=== PATIENT | male | born 1955 | race Caucasian/White ===

== ENCOUNTER 2016-11-07 05:44 | Day surgery (SDC) | payer BC ==
--- NOTE | ~2016-11-07 | EGD ---
EGD REPORT [facility] [address] [place]. [place] [address] NAME: NORA MONTES : [birth year] STATUS : REG [facility] [place] [place] PAT#: [id number] AGE: 60 ADM/REG DATE : 11/07/16 MR#: [id number] REPORT SERV DATE: 11/07/16 DICTATED BY: LARRY ALICIA DATE: 11/07/16 REPORT STATUS : Draft [facility]ANSCRIBED BY: [facility] DATE: 11/07/16 Endoscopy Center Patient Name: Nora Montes Date of : 1955 Attending MD: LARRY ALICIA MD Procedure Date No Time: 11/07/2016 Procedure: Upper GI endoscopy Indications: Epigastric abdominal pain, Heartburn, Suspected esophageal reflux Referring MD: DEAN NGUYEN MD Medicines: as per anesthesia Complications: No immediate complications. Procedure: Pre-Anesthesia Assessment: - ASA Grade Assessment: II - A patient with mild systemic disease. After obtaining informed consent, the endoscope was passed under direct vision. Throughout the procedure, the patient's blood pressure, pulse, and oxygen saturations were monitored continuously. The GIF H190 [id number] was introduced through the mouth, and advanced to the third part of duodenum. The upper GI endoscopy was accomplished without difficulty. The patient tolerated the procedure well. Findings: There were esophageal mucosal changes suspicious for short-segment Salgado's esophagus present in the lower third of the esophagus. The maximum longitudinal extent of these mucosal changes was 2 cm in length. Mucosa was biopsied with a cold forceps for histology randomly at intervals of 1 cm in the lower third of the esophagus. One specimen bottle was sent to pathology. Localized mild inflammation characterized by erythema was found in the gastric antrum. Biopsies were taken with a cold forceps for histology. The cardia and gastric fundus were normal on retroflexion. The examined duodenum was normal. Impression: - Esophageal mucosal changes suspicious for short-segment Salgado's esophagus. Biopsied. - Gastritis. Biopsied. - Normal examined duodenum. Recommendation: - Await pathology results. - Follow an antireflux regimen. - Continue present medications. EGD REPORT [facility] [address] [facility] [place] [address] NAME: NORA MONTES : [birth year] STATUS : REG [facility]#: [id number] AGE: 60 ADM/REG DATE : 11/07/16 MR#: [id number] REPORT SERV DATE: 11/07/16 DICTATED BY: LARRY ALICIA. DATE: 11/07/16 REPORT STATUS : Draft TRANSCRIBED BY: [employer] DATE: 11/07/16 Procedure Code(s): --- Professional --- 71571, Esophagogastroduodenoscopy, flexible, transoral; with biopsy, single or multiple Diagnosis Code(s): --- Professional --- K22.9, Disease of esophagus, unspecified K29.70, Gastritis, unspecified, without bleeding R10.13, Epigastric pain R12, Heartburn CPT copyright 2013 [employer]. All rights reserved. The codes documented in this report are preliminary and upon mower operator review may be revised to meet current compliance requirements. LARRY ALICIA MD 11/07/2016 7:24 AM This report has been signed electronically. Number of Addenda: 0 Note Initiated On: 11/07/2016 7:01 AM Scope Withdrawal Time 0 hours 0 minutes 0 seconds [address] [facility] [address] [place], [place] [id number]
--- NOTE | ~2016-11-07 | EGD ---
EGD REPORT [facility] [address] [place] [address] NAME: NORA MONTES : [birth year] STATUS : REG [facility]#: [id number] AGE: 60 ADM/REG DATE : 11/07/16 MR#: [id number] REPORT SERV DATE: 11/07/16 DICTATED BY: LARRY ALICIA DATE: 11/07/16 REPORT STATUS : Draft [facility]ANSCRIBED BY: [facility] DATE: 11/07/16 Endoscopy Center Patient Name: Nora Montes Date of : 1955 Attending MD: LARRY ALICIA MD Procedure Date No Time: 11/07/2016 Procedure: Colonoscopy Indications: Screening for colorectal malignant neoplasm Referring MD: DEAN NGUYEN MD Medicines: as per anesthesia Complications: No immediate complications. Procedure: Pre-Anesthesia Assessment: - ASA Grade Assessment: II - A patient with mild systemic disease. After I obtained informed consent, the scope was passed under direct vision. Throughout the procedure, the patient's blood pressure, pulse, and oxygen saturations were monitored continuously. The PCF [id number] was introduced through the anus and advanced to the cecum, identified by appendiceal orifice and ileocecal valve. The colonoscopy was performed without difficulty. The patient tolerated the procedure. The quality of the bowel preparation was adequate to identify polyps. Findings: The perianal and digital rectal examinations were normal. A sessile polyp was found in the cecum. The polyp was 5 mm in size. The polyp was removed with a jumbo cold forceps. Resection and retrieval were complete. Internal hemorrhoids were found during endoscopy and were mild. Impression: - One 5 mm polyp in the cecum. Resected and retrieved. - Internal hemorrhoids. Recommendation: - Await pathology results. - Repeat colonoscopy for surveillance based on pathology results. Procedure Code(s): --- Professional --- 22111, Colonoscopy, flexible, proximal to splenic flexure; with biopsy, single or multiple Diagnosis Code(s): --- Professional --- D12.0, Benign neoplasm of cecum K64.8, Other hemorrhoids EGD REPORT [facility] [address] [address] NAME: NORA MONTES : [birth year] STATUS : REG [facility] PAT#: [id number] AGE: 60 ADM/REG DATE : 11/07/16 MR#: [id number] REPORT SERV DATE: 11/07/16 DICTATED BY: LARRY ALICIA. DATE: 11/07/16 REPORT STATUS : Draft TRANSCRIBED BY: [employer] DATE: 11/07/16 Z12.11, Encounter for screening for malignant neoplasm of colon CPT copyright 2013 [employer]. All rights reserved. The codes documented in this report are preliminary and upon flight manager review may be revised to meet current compliance requirements. LARRY ALICIA MD 11/07/2016 7:49 AM This report has been signed electronically. Number of Addenda: 0 Note Initiated On: 11/07/2016 6:58 AM Scope Withdrawal Time 0 hours 12 minutes 8 seconds [address] [id number]
[~2016-11-07 05:44] MED LIST: ADVIL 100100 MG/5 M PO; ASABAYER PO; CIALIS10 MG PO; DIOV160 PO; MAALOX MAX PO; PRILO PO
== END 2016-11-07 23:59 | disposition home or self-care (01) ==
LOC: DMU 05:44
PROVIDERS: Internal Medicine Gastroenterology
PROC: 0DB68ZX Excision of Stomach, Via Natural or Artificial Opening Endoscopic, Diagnostic (ICD-10-PCS; 2016-11-07)
PROC: 0D9H8ZX Drainage of Cecum, Via Natural or Artificial Opening Endoscopic, Diagnostic (ICD-10-PCS; principal; 2016-11-07 07:00)
PROC: 0DB58ZX Excision of Esophagus, Via Natural or Artificial Opening Endoscopic, Diagnostic (ICD-10-PCS; 2016-11-07 07:00)
DX: Z12.11 Encounter for screening for malignant neoplasm of colon (principal); D12.0 Benign neoplasm of cecum; K64.8 Other hemorrhoids; K22.9 Disease of esophagus, unspecified; K29.70 Gastritis, unspecified, without bleeding; K21.9 Gastro-esophageal reflux disease without esophagitis; I10 Essential (primary) hypertension; E78.00 Pure hypercholesterolemia, unspecified; Z88.8 Allergy status to other drugs, medicaments and biological substances; Z88.2 Allergy status to sulfonamides
CPT/HCPCS: 88305